=== PATIENT | female | born 1985 | race Hispanic/Latino ===

== ENCOUNTER 2021-08-13 19:28 | Emergency (ER) | payer OTHER ==
[2021-08-13] MEDS ORDERED: Ketorolac Tromethamine 30 MG/ML VIAL ONE (20:22)
[2021-08-13] MEDS ORDERED: diphenhydrAMINE 25 MG CAP ONE (20:22)
[2021-08-13] MEDS ORDERED: Sodium Chloride 0.9% 1,000 ML ONE (20:22)
[2021-08-13] MEDS ORDERED: Metoclopramide HCl 10 MG/2 ML VIAL ONE (20:22)
[2021-08-13] MEDS ORDERED: Sodium Chloride 0.9% 100 ML ONE (20:22)
[2021-08-13] MEDS ORDERED: diphenhydrAMINE 50 MG/ML VIAL ONE (20:25)
== END 2021-08-13 21:41 | disposition home or self-care (01) ==
LOC: NAV ERS 19:28
DX: G43.909 Migraine, unspecified, not intractable, without status migrainosus (principal)
CPT/HCPCS: 96365; 96375; J1200; J1885; J2765; J7050

== ENCOUNTER 2022-08-16 20:44 | Emergency (ER) | payer OTHER, SELFPAY | END 2022-08-16 21:20 | disposition home or self-care (01) | LOC: NAV ERS 20:44 | DX: S40.862A Insect bite (nonvenomous) of left upper arm, initial encounter (principal); W57.XXXA Bitten or stung by nonvenomous insect and other nonvenomous arthropods, initial encounter | CPT/HCPCS: 99282 ==